=== PATIENT | male | born 1950 | race Caucasian/White ===

== ENCOUNTER 2020-11-18 19:27 | Emergency (ER) | payer OTHER ==
[~2020-11-18 19:27] MED LIST: ASPIRIN EC81 MG PO; ATORVASTATIN CA80 MG PO; AVODART 0.5 MG0.5 MG PO; CLOPIDOGREL75 MG PO; COZAAR 50MG TAB50 MG PO; CYANOCOBAL1000 MCG/1 INJ; FERROUS SULFAT325 M2 PO; FOLIC ACID 1 MG1 MG PO; HYDROCHLOROTHIA25 MG PO; K-TAB ER10 MEQ PO; LACTULOSE10 GM/15 M PO; LOPRESSOR 25 MG25 MG PO; MICROZIDE12.5 MG PO; MULTIVITAMINS1 EAC1 PO; NORVASC 5 MG TAB5 MG PO; OMEPRAZOLE40 MG PO; SEROQUEL100 MG PO; SYNTHROID 25 M25 MCG PO; TAMSULOSIN HCL0.4 MG PO; TOPROL XL100 MG PO; TYLENOL 500 MG500 MG PO; VENLAFAXINE HC150 MG PO; VITAMIN D2 PO; WELLBUTRIN XL150 MG PO
[2020-11-18 21:31] LABS: HEMOGLOBIN 16.6 gm/dl (14.0-17.5); RED BLOOD COUNT 5.12 M/UL (4.20-5.50); WHITE BLOOD COUNT 12.6 K/UL (4.5-11.0)
[2020-11-18 21:49] LABS: BUN/CREATININE RATIO 23 (0-10)
== END 2020-11-19 03:25 | disposition admitted as inpatient to this hospital (09) ==
LOC: ER1 19:27
PROVIDERS: Family Medicine
DX: K22.3 Perforation of esophagus (principal); K66.8 Other specified disorders of peritoneum; I51.9 Heart disease, unspecified; Z86.73 Personal history of transient ischemic attack (TIA), and cerebral infarction without residual deficits; Z20.822 Contact with and (suspected) exposure to COVID-19
CPT/HCPCS: 71045; 80053; 81001; 82150; 82550; 82553; 83690; 84484; 85025; 87635; 93005; 96365; 96366; 96368; 96375; 96376; 99285; J2270; J2405; J3370; Q9967